=== PATIENT | male | born 1985 | race American Indian/Alaskan Native ===

== ENCOUNTER 2017-06-10 06:24 | Emergency (ER) | payer OTHER ==
[2017-06-10] MEDS ORDERED: TORADOL IM ONE (08:00)
[2017-06-10] MEDS ORDERED: NORCO 5/325 PO ONE (08:00)
[2017-06-10] MEDS ORDERED: FLEXERIL PO ONE (08:00)
--- NOTE | 2017-06-10 08:10 | XRay Report ---
LEFT KNEE, 3 views: History: Left knee pain. The bony architecture is intact without evidence of fracture or dislocation. No significant soft tissue abnormality is seen. IMPRESSION: Normal left knee.
--- NOTE | 2017-06-10 09:26 | Emergency Department Report ---
ED Lower Extremity HPI - General Chief Complaint: Extremity Injury, Lower Stated Complaint: KNEE PAIN Source: patient Mode of arrival: Ambulatory Limitations: No Limitations - History of Present Illness Initial Comments: 31 year old male presents to ED with left knee pain x5-6months. patient states he is still ambulatory but has intermittent pain in anterior knee. patient denies injury. patient is stable, neurologically intact and in no acute distress. MD Complaint: other (chronic left knee pain) -: month(s) (5-6) Injury: Knee: Left Severity: mild Improves With: nothing Worsens With: weight bearing, movement Associated Symptoms: ambulatory. denies: snap/pop sensation, swelling, numbness , tingling - Related Data Previous Rx's Medication Instructions Recorded Last Taken Type Ketorolac [Toradol] 10 mg PO Q6H PRN #20 tablet 06/10/17 Unknown Rx methOCARBAMOL [Robaxin TAB] 500 mg PO BID #20 tab 06/10/17 Unknown Rx Allergies Allergy/AdvReac Type Severity Reaction Status Date / Time fruit Allergy Itching Uncoded 06/10/17 07:19 ED Review of Systems ROS: Stated complaint: KNEE PAIN Other details as noted in HPI Constitutional: denies: chills, fever Eyes: denies: eye pain, eye discharge, vision change ENT: denies: ear pain, throat pain Respiratory: denies: cough, shortness of breath, wheezing Cardiovascular: denies: chest pain, palpitations Endocrine: no symptoms reported Gastrointestinal: denies: abdominal pain, nausea, diarrhea Genitourinary: denies: urgency, dysuria Musculoskeletal: arthralgia (left knee pain). denies: back pain, joint swelling Skin: denies: rash, lesions Neurological: denies: headache, weakness, paresthesias Psychiatric: denies: anxiety, depression Hematological/Lymphatic: denies: easy bleeding, easy bruising ED Past Medical Hx - Past Medical History Previous Medical History?: No - Surgical History Past Surgical History?: No - Social History Smoking Status: Former Smoker Substance Use Type: Non Opiate Pain - Medications Home Medications: Home Medications Medication Instructions Recorded Confirmed Last Taken Type Ketorolac [Toradol] 10 mg PO Q6H PRN #20 tablet 06/10/17 Unknown Rx methOCARBAMOL [Robaxin TAB] 500 mg PO BID #20 tab 06/10/17 Unknown Rx ED Physical Exam - General Limitations: No Limitations General appearance: alert, in no apparent distress - Head Head exam: Present: atraumatic, normocephalic - Eye Eye exam: Present: normal appearance - ENT ENT exam: Present: mucous membranes moist - Neck Neck exam: Present: normal inspection - Respiratory Respiratory exam: Present: normal lung sounds bilaterally. Absent: respiratory distress - Cardiovascular Cardiovascular Exam: Present: regular rate, normal rhythm. Absent: systolic murmur, diastolic murmur, rubs, gallop - GI/Abdominal GI/Abdominal exam: Present: soft, normal bowel sounds - Rectal Rectal exam: Present: deferred - Extremities Exam Extremities exam: Present: normal inspection, full ROM (full ROM in left knee), tenderness (mild anterior left knee tenderness ), other (left dorsalis pedis pulse intact) - Back Exam Back exam: Present: normal inspection - Neurological Exam Neurological exam: Present: alert, oriented X3, normal gait - Psychiatric Psychiatric exam: Present: normal affect, normal mood - Skin Skin exam: Present: warm, dry, intact, normal color. Absent: rash ED Course Vital Signs 06/10/17 06/10/17 06/10/17 07:19 08:10 08:11 Temperature 97.9 F Pulse Rate 52 L Respiratory 20 16 16 Rate Blood Pressure 120/74 O2 Sat by Pulse 100 Oximetry ED Lower Extremity MDM - Radiology Data Radiology results: report reviewed xr left knee: normal left knee. - Medical Decision Making 31 year old male presents to ED with chronic left knee pain. patient is ambulatory. patient is stable, neurologically intact and in no acute distress. patient will be given RX for pain medication and referral to ortho MD for further evaluation. Critical care attestation.: If time is entered above; I have spent that time in minutes in the direct care of this critically ill patient, excluding procedure time. ED Disposition Clinical Impression: Knee pain, chronic Qualifiers: Laterality: left Qualified Code(s): M25.562 - Pain in left knee Disposition: DC-01 TO HOME OR SELFCARE Is pt being admited?: No Does the pt Need Aspirin: No Condition: Stable Prescriptions: Ketorolac [Toradol] 10 mg PO Q6H PRN #20 tablet PRN Reason: Pain methOCARBAMOL [Robaxin TAB] 500 mg PO BID #20 tab Referrals: PRIMARY CAREMD [Primary Care Provider] - 3-5 Days MARIANA MIRELES MD [Staff Physician] - 24 Hours Forms: Work/School Release Form(ED)
[2017-06-10 09:37] VITALS: BP 118/77
== END 2017-06-10 09:38 | disposition home or self-care (01) ==
LOC: ED 06:24
DX: M25.562 Pain in left knee (principal); G89.29 Other chronic pain; Z87.891 Personal history of nicotine dependence; Z91.018 Allergy to other foods
CPT/HCPCS: 73562; 96372; 99283; J1885

== ENCOUNTER 2017-06-28 00:22 | Emergency (ER) | payer OTHER ==
[2017-06-28 01:24] VITALS: BP 128/67
[2017-06-28 02:02] LABS: Basophils % (Auto) 0.7 % (0.0-1.8); Eosinophils % (Auto) 10.5 % (0.0-4.3); Hematocrit 44.1 % (35.5-45.6); Hemoglobin 14.2 gm/dl (11.8-15.2); Mean Corpuscular HGB Conc 32 % (32-34); Mean Corpuscular Hemoglobin 28 pg (28-32); Mean Corpuscular Volume 86 fl (84-94); Platelet Count 231 K/mm3 (140-440); Red Blood Count 5.12 M/mm3 (3.65-5.03); White Blood Count 5.6 K/mm3 (4.5-11.0)
[2017-06-28 02:31] LABS: Anion Gap 21 mmol/L; BUN/Creatinine Ratio 16.66; Blood Urea Nitrogen 15 mg/dL (9-20); Calcium 9.1 mg/dL (8.4-10.2); Carbon Dioxide 22 mmol/L (22-30); Chloride 104.3 mmol/L (98-107); Glucose 95 mg/dL (75-100); Sodium 143 mmol/L (137-145)
[2017-06-28 03:22] LABS: Bilirubin,Urine NEG (Negative); Blood,Urine SM (Negative); Ketones,Urine NEG (Negative); Leukocyte Esterase,Urine NEG (Negative); Mucus,Urine FEW /HPF; Nitrite,Urine NEG (Negative); Urobilinogen,Urine < 2.0 mg/dL (<2.0)
== END 2017-06-28 02:00 | disposition left against medical advice (07) ==
LOC: ED 00:22
DX: R11.10 Vomiting, unspecified (principal); Z53.21 Procedure and treatment not carried out due to patient leaving prior to being seen by health care provider
CPT/HCPCS: 36415; 80048; 81001; 85025

== ENCOUNTER 2019-08-25 14:50 | Emergency (ER) | payer OTHER ==
[2019-08-25 15:19] VITALS: BP 141/75
[2019-08-25] MEDS ORDERED: IBUPROFEN 800 MG TAB PO ONE (16:49)
[2019-08-25] MEDS ORDERED: predniSONE 20 MG TAB PO ONE (16:49)
--- NOTE | 2019-08-25 16:49 | Emergency Department Report ---
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 WHICH HE THINKS HAS NOW MADE HIM ILL. NO FEVER. NON ILL APPEARING. TOOK NOTHING AT HOME TO FEEL BETTER. PAIN 02/06 IN [facility] ED Review of Systems ROS: Stated complaint: EXPOSEF TO MILDE[place]/MOLD Other details as noted in HPI Comment: All other systems reviewed and negative ED Past Medical Hx - Past Medical History Previous Medical History?: No - Surgical History Past Surgical History?: No - Family History Family history: no significant - Social History Smoking Status: Never Smoker Substance Use Type: None - Medications Home Medications: Home Medications Medication Instructions Recorded Confirmed Last Taken Type Amoxicillin [Trimox CAP] 500 mg PO BID #20 capsule 08/25/19 Unknown Rx predniSONE [Deltasone] 20 mg PO DAILY #5 tablet 08/25/19 Unknown Rx Minor Respiratory Exam - Exam General: Vital signs noted. No distress. Alert and acting appropriately. ABC INTACT AMBULATORY NON ILL APPEARING TAKING PO UVULA BOGGY AND RED. LUNGS CTA HEENT: Yes Pharyngeal Erythema, Yes Moist Mucous Membranes, Yes Conjuctival Injection, No Pharyngeal Exudates, No Rhinorrhea, No Frontal Tenderness, No Maxillary Tenderness Ear: Neither TM Bulge, Neither TM Erythema, Neither EAC Pain, Neither EAC Discharge Neck: Yes Supple, No Adenopathy Lungs: Yes Good Air Exchange, No Wheezes, No Ronchi, No Stridor Heart: Yes Regular, No Murmur Abdomen: Yes Normal Bowel Sounds, No Tenderness, No Peritoneal Signs Skin: Yes Rash Neurologic: Alert and oriented, no deficits. Musculoskeletal: Unremarkable. ED Course Vital Signs 08/25/19 15:18 Temperature 98.6 F Pulse Rate 96 H Respiratory 16 Rate Blood Pressure 141/75 O2 Sat by Pulse 97 Oximetry ED Medical Decision Making - Radiology Data Radiology results: report reviewed, image reviewed - Medical Decision Making XRAY NO INFILTRATE MEDICATED FOR PAIN IN ER DC HOME WITH DC PLAN OF CARE Vital Signs 08/25/19 08/25/19 15:18 17:02 Temperature 98.6 F Pulse Rate 96 H Respiratory 16 16 Rate Blood Pressure 141/75 O2 Sat by Pulse 97 Oximetry - Differential Diagnosis URTI Critical care attestation.: If time is entered above; I have spent that time in minutes in the direct care of this critically ill patient, excluding procedure time. ED Disposition Clinical Impression: URTI (acute upper respiratory infection), Uvulitis Disposition: - TO HOME OR SELFCARE Is pt being admited?: No Does the pt Need Aspirin: No Condition: Stable Instructions: Upper Respiratory Infection (ED) Additional Instructions: MED ORDERED TODAY MOTRIN OR TYLENOL FOR PAIN OR FEVER FOLLOW UP WITH DR DE LEÓN REFERRAL BELOW HYDRATE WELL WITH WATER Referrals: WILFRIDO DE LEÓN MD [Staff Physician] - 3-5 Days Time of Disposition: 17:14
--- NOTE | 2019-08-25 17:46 | XRay Report ---
CHEST 2 VIEWS INDICATION / CLINICAL INFORMATION: COUGH. COMPARISON: None available. FINDINGS: SUPPORT DEVICES: None. HEART / MEDIASTINUM: No significant abnormality. LUNGS / PLEURA: No significant pulmonary or pleural abnormality. .No pneumothorax. ADDITIONAL FINDINGS: No significant additional findings. IMPRESSION: 1. No acute findings. Signer Name: Eric Pereira MD Signed: 08/25/2019 5:42 PM Workstation Name: [id number]
== END 2019-08-25 17:45 | disposition home or self-care (01) ==
LOC: ED 14:50
DX: J06.9 Acute upper respiratory infection, unspecified (principal); R42 Dizziness and giddiness; K12.2 Cellulitis and abscess of mouth; Z91.018 Allergy to other foods
CPT/HCPCS: 71046; 99283; J7512